=== PATIENT | female | born 1990 | race Caucasian/White ===

== ENCOUNTER 2020-05-20 09:02 | Emergency (ER) | payer OTHER ==
[~2020-05-20] VITALS: Ht 170.2 cm; Wt 60.8 kg
[2020-05-20 11:47] LABS: CHLAMYDIA DNA AMPLIFICATION NEGATIVE (NEGATIVE); GC DNA AMPLIFICATION NEGATIVE (NEGATIVE)
--- NOTE | 2020-05-20 11:55 | REPVR ---
PROCEDURE INFORMATION: Exam: US Nonobstetric Pelvis; Complete Exam date and time: 05/20/2020 10:56 AM Age: 29 years old Clinical indication: Pelvic pain; Additional info: Pelvic cramping, bloating TECHNIQUE: Imaging protocol: Transabdominal pelvic nonobstetric ultrasound. Complete exam. Real time ultrasound with image documentation. COMPARISON: No relevant prior studies available. FINDINGS: Uterus/cervix: The uterus is anteverted. Uterus 8.4 x 4.3 x 5.2 cm. The endometrial thickness is 1.6 cm. Right adnexa: Right ovary 3.4 x 2.5 x 3.2 cm. Left adnexa: Left ovary 3.8 x 2.6 x 2.6 cm. Bladder: Limited images of the urinary bladder are unremarkable. IMPRESSION: No acute findings are identified. Electronically signed by: Zaki Castaneda On 05/20/2020 11:55:00 AM
[2020-05-20] MEDS ORDERED: PYRI1TAB5 PO (12:07)
[2020-05-20 12:23] VITALS: BP 137/86
== END 2020-05-20 12:25 | disposition home or self-care (01) ==
LOC: M ED 09:02
DX: R30.0 Dysuria (principal); R14.0 Abdominal distension (gaseous); R11.2 Nausea with vomiting, unspecified

== ENCOUNTER → 2020-05-31 | Outpatient (CLI) | payer OTHER ==
[~2020-05-31] MED LIST: PYRI1TAB5 PO
--- NOTE | 2020-05-31 16:28 | REP ---
INDICATION: BARBARA BREAST U/S/BARBARA BREAST DISCOMFORT. COMPARISON: None TECHNIQUE: REAL-TIME SONOGRAPHIC EVALUATION OF BILATERAL UPPER OUTER QUADRANTS AND AXILLARY REGIONS PERFORMED. FINDINGS: THERE IS NO BREAST NODULE IN EITHER UPPER OUTER QUADRANT. THERE ARE NONENLARGED AXILLARY LYMPH NODES BILATERALLY. LARGEST ON THE RIGHT MEASURES 1.8 X 1.5 X 0.4 CM AND ON THE LEFT 2.9 X 1.1 X 0.5 CM. IMPRESSION: BI-RADS CATEGORY 2, BENIGN. NO NODULE IS SEEN IN THE UPPER OUTER QUADRANT OF EITHER BREAST. THERE ARE NONENLARGED AXILLARY LYMPH NODES BILATERALLY. RECOMMENDATION: CLINICAL CORRELATION FOLLOW-UP RECOMMENDED. <Electronically signed by Rishi Benavides > 05/31/20 [id number]
== END ==
LOC: M WHC 10:39
PROVIDERS: ATTEND Family Medicine
DX: N64.4 Mastodynia (principal)

== ENCOUNTER 2020-11-25 11:02 | Emergency (ER) | payer OTHER ==
[~2020-11-25] VITALS: Ht 167.6 cm; Wt 76.2 kg
[2020-11-25] MEDS ORDERED: DERMABOND TOPICAL SKIN ADHESIVE TOP ONE (12:10)
[2020-11-25] MEDS ORDERED: CEPH500C PO (12:24)
[2020-11-25 12:27] VITALS: BP 144/83
== END 2020-11-25 12:36 | disposition home or self-care (01) ==
LOC: M ED 11:02
DX: S61.217A Laceration without foreign body of left little finger without damage to nail, initial encounter (principal); Y92.009 Unspecified place in unspecified non-institutional (private) residence as the place of occurrence of the external cause; Y93.G1 Activity, food preparation and clean up; Y99.9 Unspecified external cause status; Z79.899 Other long term (current) drug therapy